=== PATIENT | male | born 1975 | race Caucasian/White ===

== ENCOUNTER 2018-11-14 22:00 | Emergency (ER) | payer OTHER ==
--- NOTE | 2018-11-15 01:16 | ER Document Report ---
ED Medical Screen (RME) - General Chief Complaint: Chest Pain Stated Complaint: CHEST PAIN,SHORTNESS OF BREATH Time Seen by Provider: 11/15/18 01:13 Mode of Arrival: Ambulatory Information source: Patient Notes: 43-year-old male presented to ED for complaint of chest pain since 8 PM tonight. He states he had sharp chest pain to the left chest then it started radiating to his right chest about an hour ago then went down his right arm and it became numb. States he was very short of breath. Now in the chest pain radiates back and forth between the right and the left. He states is worse with exertion. He does not have any history of any heart attacks or coronary artery disease. He does have a slight elevation in his cholesterol on his last visit to the doctor. He has a history of degenerative disc disease neck fusion and discectomies in the lumbar area. 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 He is alert oriented respirations regular and unlabored speaking in full sentences walks with a even steady gait at this time. His lungs are clear abdomen soft bowel sounds active. states she gave him 2 Excedrin's at home because she did not have aspirin. I have greeted and performed a rapid initial assessment of this patient. A comprehensive ED assessment and evaluation of the patient, analysis of test results and completion of medical decision making process will be conducted by an additional ED providers. TRAVEL OUTSIDE OF THE [place] IN LAST 30 DAYS: No - Related Data Allergies/Adverse Reactions: No Known Allergies Allergy (Unverified 11/14/18 22:34) Physical Exam - Vital signs Vitals: Temp Pulse Resp BP Pulse Ox 98.1 F 74 18 136/90 H 97 11/14/18 23:01 11/14/18 23:01 11/14/18 23:01 11/14/18 23:01 11/14/18 23:01 Course - Vital Signs Vital signs: Temp Pulse Resp BP Pulse Ox 98.1 F 74 18 136/90 H 97 11/14/18 23:01 11/14/18 23:01 11/14/18 23:01 11/14/18 23:01 11/14/18 23:01
--- NOTE | 2018-11-15 02:41 | RADIOLOGY REPORT (SQ) ---
CLINICAL HISTORY: chest pain short of breath COMPARISON: None. TECHNIQUE: XR CHEST 2 VIEWS 11/15/2018 1:13 AM CDT FINDINGS: Cardiac silhouette is normal in size. Lungs are clear without consolidation, atelectasis, mass or edema. There is no pleural effusion. There is no pneumothorax. There are no acute osseous findings. IMPRESSION: Clear lungs.
[2018-11-15] MEDS ORDERED: ONDANSETRON HCL INJ/PF 4 MG/2 ML SDV IV ONE (03:36)
[2018-11-15] MEDS ORDERED: MORPHINE SULFATE 10 MG/ML INJ IV ONE (03:36)
--- NOTE | 2018-11-15 03:38 | ER Document Report ---
ED Cardiac - General Chief Complaint: Chest Pain Stated Complaint: CHEST PAIN,SHORTNESS OF BREATH Time Seen by Provider: 11/15/18 01:13 Primary Care Provider: TONIO CARTER MD [Primary Care Provider] - Follow up as needed Mode of Arrival: Ambulatory Notes: Patient is a 43-year-old male that comes to the emergency department with chief complaint of chest pain that started around 8 PM tonight. He states that he was just sitting around when he started feeling pain, he rates the pain is sharp in the left chest, he did notice a radiation towards the right and into the right arm. He states that with the pain he started feeling short of breath. He states pain is improved now but not resolved, currently 6 out of 10. He denies cough, current shortness of breath, fever/chills, nausea/vomiting, abdominal pain. He was given 2 pills of Excedrin by his for aspirin prior to arrival. Past medical history of cervical fusion and lumbar discectomy, takes Cymbalta and as needed oxycodone, denies smoking, reports occasional alcohol, denies recreational drug. Denies personal family history of DE or blood clot. TRAVEL OUTSIDE OF THE [place] IN LAST 30 DAYS: No - Related Data Allergies/Adverse Reactions: No Known Allergies Allergy (Unverified 11/14/18 22:34) Past Medical History - General Information source: Patient - Social History Smoking Status: Never Smoker Drug Abuse: None Lives with: Family Family History: Reviewed & Not Pertinent Musculoskeletal Medical History: Reports Hx Arthritis Past Surgical History: Reports: Hx Orthopedic Surgery - Immunizations Immunizations up to date: Yes Hx Diphtheria, Pertussis, Tetanus Vaccination: Yes Review of Systems - Review of Systems Constitutional: No symptoms reported EENT: No symptoms reported Cardiovascular: See HPI Respiratory: See HPI Gastrointestinal: No symptoms reported Genitourinary: No symptoms reported Male Genitourinary: No symptoms reported Musculoskeletal: No symptoms reported Skin: No symptoms reported Hematologic/Lymphatic: No symptoms reported Neurological/Psychological: No symptoms reported Physical Exam - Vital signs Vitals: Temp Pulse Resp BP Pulse Ox 98.1 F 74 18 136/90 H 97 11/14/18 23:01 11/14/18 23:01 11/14/18 23:01 11/14/18 23:01 11/14/18 23:01 - Notes Notes: GENERAL: Alert, interacts well. No acute distress. HEAD: Normocephalic, atraumatic. EYES: Pupils equal, round, and reactive to light. Extraocular movements intact. ENT: Oral mucosa moist, tongue midline. Oropharynx unremarkable. Airway patent. Nares patent, no nasal septal hematoma, TM's intact. NECK: Full range of motion. Supple. Trachea midline. LUNGS: Clear to auscultation bilaterally, no wheezes, rales, or rhonchi. No respiratory distress. Reproducible chest wall tenderness over the left pectoral muscle. HEART: Regular rate and rhythm. No murmur ABDOMEN: Soft, non-tender. Non-distended. Bowel sounds present in all 4 quadrants. GENITOURINARY: Deferred EXTREMITIES: Moves all 4 extremities spontaneously. No edema, normal radial and dorsalis pedis pulses bilaterally. No cyanosis. BACK: no cervical, thoracic, lumbar midline tenderness. No saddle anesthesia, normal distal neurovascular exam. NEUROLOGICAL: Alert and oriented x3. Normal speech. . PSYCH: Normal affect, normal mood. SKIN: Warm, dry, normal turgor. No rashes or lesions noted. Course - Re-evaluation Re-evalutation: Unremarkable EKG. Normal chest x-ray. CBC, chemistry unremarkable. Troponin is negative. Patient had a very long delay in the waiting room, he waited 5 hours before he had his first troponin drawn. The second troponin is essentially the repeat as a result. Symptoms have been present for over 8 hours. Symptoms are persistent and mild with occasional sharp pain, this is reproducible with palpation over the left chest wall. He is not tachycardic, he has no lower extremity swelling, he has no signs of distress. His heart score is 1. I have a very low suspicion of cardiac source or pulmonary source of his pain except for possible pleurisy. I discussed all details with patient. After discussion decision was made to treat patient with dexamethasone here for pleurisy versus costochondritis, discussed follow-up, patient does have good primary care follow-up, discussed return precautions in detail. Patient states understanding and agreement. - Vital Signs Vital signs: Temp Pulse Resp BP Pulse Ox 98.3 F 74 17 134/91 H 97 11/15/18 05:00 11/14/18 23:01 11/15/18 05:00 11/15/18 04:01 11/15/18 05:00 - Laboratory Result Diagrams: 11/15/18 03:58 11/15/18 03:58 Laboratory results interpreted by me: 11/15/18 03:58 Glucose 118 H ALT 93 H Discharge - Discharge Clinical Impression: Atypical chest pain Condition: Stable Disposition: HOME, SELF-CARE Additional Instructions: Your work-up at this point does not show any concerning abnormality. Based on your evaluation you most likely have either pleurisy or costochondritis (inflammation of the cartilage between your ribs). You have been treated for this, you can take [id number] or your pain medication as needed for this, you can apply heat to the chest wall. Rest. Symptoms should gradually resolve. Perform close follow-up with your primary care for additional evaluation and management. Return if you worsen including severe worsening pain, difficulty breathing, fever, vomiting, passing out, or any other concerning symptoms. Referrals: TONIO CARTER MD [Primary Care Provider] - Follow up as needed
[2018-11-15 04:12] LABS: ABSOLUTE EOSINOPHILS # (AUTO) 0.3 10^3/uL (0.0-0.6); ABSOLUTE MONOCYTES (AUTO) 0.6 10^3/uL (0.1-1.4); ABSOLUTE NEUT (AUTO) 2.6 10^3/uL (1.7-8.2); BASOPHILS % (AUTO) 0.7 % (0-2); EOSINOPHILS % (AUTO) 4.7 % (0-6); HEMATOCRIT 44.8 % (37.9-51.0); LYMPHOCYTES % (AUTO) 35.7 % (13-45); MEAN CORPUSCULAR HEMOGLOBIN 30.2 pg (27.0-33.4); MEAN CORPUSCULAR HGB CONC 33.4 g/dL (32.0-36.0); MEAN CORPUSCULAR VOLUME 91 fl (80-97); MONOCYTES % (AUTO) 10.6 % (3-13); PLATELET COUNT 295 10^3/uL (150-450); RED BLOOD COUNT 4.95 10^6/uL (4.35-5.55); RED CELL DISTRIBUTION WIDTH 13.1 % (11.5-14.0); SEGMENTED NEUTROPHILS % (AUTO) 48.3 % (42-78); TOTAL CELLS COUNTED % (AUTO) 100 %; WHITE BLOOD COUNT 5.5 10^3/uL (4.0-10.5)
[2018-11-15 04:30] LABS: ALANINE AMINOTRANSFERASE 93 U/L (21-72); ALKALINE PHOSPHATASE 63 U/L (38-126); ANION GAP 8 (5-19); ASPARTATE AMINO TRANSFERASE 42 U/L (17-59); BILIRUBIN,DIRECT 0.3 mg/dL (0.0-0.4); BILIRUBIN,TOTAL 0.4 mg/dL (0.2-1.3); BLOOD UREA NITROGEN 13 mg/dL (7-20); CALCIUM 9.4 mg/dL (8.4-10.2); CARBON DIOXIDE 29 mmol/L (22-30); CHLORIDE 105 mmol/L (98-107); GLUCOSE 118 mg/dL (75-110); LIPASE 47.9 U/L (23-300); POTASSIUM 4.6 mmol/L (3.6-5.0); SODIUM 142.2 mmol/L (137-145); TOTAL PROTEIN 7.1 g/dL (6.3-8.2)
[2018-11-15 04:41] LABS: CREATINE KINASE MB 0.64 ng/mL (<4.55)
[2018-11-15 04:42] LABS: TROPONIN I < 0.012 ng/mL
[2018-11-15] MEDS ORDERED: DEXAMETHASONE SOD PHOS INJ 10 MG/1 ML VIAL IV ONE (05:06)
[2018-11-15 05:18] VITALS: BP 134/91
--- NOTE | 2018-11-15 19:38 | EKG REPORT ---
SEVERITY:- NORMAL ECG - SINUS RHYTHM : Confirmed by: Tammy Kuo MD 15-Nov-2018 19:38:17
== END 2018-11-15 05:29 | disposition home or self-care (01) ==
LOC: ER 22:00
DX: R07.9 Chest pain, unspecified (principal); R07.89 Other chest pain; R06.02 Shortness of breath; Z98.1 Arthrodesis status; Z79.899 Other long term (current) drug therapy
CPT/HCPCS: 93005; 99284; 96374; 96375; 36415; 82553; 83690; 85025; 80053; 84484; 71046; 93010; J2270; J2405; J1100